=== PATIENT | male | born 1985 | race Caucasian/White ===

== ENCOUNTER 2018-09-10 06:48 | Day surgery (SDC) | payer BC, MEDICAID ==
[2018-09-10] MEDS ORDERED: Acetaminophen TAB* 325 MG ONE (07:03)
[2018-09-10] MEDS ORDERED: Clindamycin 900 MG IVPREMIX(* 900 MG/50 ML SDV IV ONE (07:04)
[2018-09-10] MEDS ORDERED: Propofol* 10 MG/ML 20 ML BTL ONE (07:53)
[2018-09-10] MEDS ORDERED: Lidocaine 2% PF * 5 ML VIAL ONE (07:54)
[2018-09-10] MEDS ORDERED: Remifentanil* 2 MG VIAL ONE (07:54)
[2018-09-10] MEDS ORDERED: Midazolam* 1 MG/ML 2 ML VIAL (2 MG) ONE (07:54)
[2018-09-10] MEDS ORDERED: Phenylephrine 10 MG/ML VIAL* 1 ML VIAL ONE (09:29)
[2018-09-10] MEDS ORDERED: Dexamethasone IV* 4 MG/ML 1 ML (4 MG) ONE (09:35)
[2018-09-10] MEDS ORDERED: Ondansetron INJ* 2 MG/ML VIAL ONE (09:35)
[2018-09-10] MEDS ORDERED: Metoclopramide IV* 5 MG/ML 2 ML VIAL ONE (09:35)
[2018-09-10] MEDS ORDERED: Ketorolac INJ* 30 MG/ML 1 ML VIAL ONE (09:35)
[2018-09-10] MEDS ORDERED: Naloxone* 0.4 MG/ML 1 ML VIAL IV PRN (09:50)
[2018-09-10] MEDS ORDERED: DiMENhydriNATE IV* 50 MG/ML VIAL IV PUSH PRN (09:50)
[2018-09-10] MEDS ORDERED: fentaNYL* 50 MCG/ML 2 ML VIAL (100 MCG VIAL) IV PRN (09:50)
[2018-09-10] MEDS ORDERED: fentaNYL* 50 MCG/ML 2 ML VIAL (100 MCG VIAL) ONE ×2 (10:00→12:02)
[2018-09-10] MEDS ORDERED: Etomidate* 2 MG/ML 10 ML VIAL ONE (11:02)
[2018-09-10] MEDS ORDERED: oxyCODONE TAB* 5 MG TAB ONE ×2 (11:24→15:01)
[2018-09-10] MEDS: oxyCODONE TAB* 5 MG TAB PO PRN ×2 (12:00→15:03)
[2018-09-10 15:06] VITALS: BP 124/85
--- NOTE | 2018-09-10 20:46 | OP ---
DATE OF OPERATION: 09/10/18 - SDS DATE OF : 87 ATTENDING SURGEON: Johnson Rolon MD ANTISQUEAK WORKER: Nargis Neal PA-C PRE-OP DIAGNOSIS: Spastic quadriplegia with left forefoot deformity. POST-OP DIAGNOSIS: Spastic quadriplegia with left forefoot deformity. OPERATIVE PROCEDURE: First MTP joint fusion, fifth DIP resection arthroplasty with flexor and extensor release, left fifth toe. DESCRIPTION OF PROCEDURE: The patient was taken to the operating room where general anesthesia was performed. I made a longitudinal incision over the first MTP joint with the medial lateral flap raised. There was significant osteopenia noted clinically. A guidepin was placed first in the metatarsal, then in the proximal phalanx, and we used a ball and cup reamers from the [employer] set, 18 mm. We then placed the joint in neutral position and tried a proximal to distal lag screw, which did not hold it, cut through the metatarsal head. So we went more distal, lateral, proximal, medial, and found good purchase. We then placed a small T-shaped plate of the 2.4 mm kit to hold the joint in a neutral position dorsally, a combination of locking and nonlocking screws were used. We also made a transverse elliptical incision over the DIP joint of the fifth toe by moving the middle phalanx distal condyle and the distal phalanx proximal condyle. We then pinned this toe longitudinally in a neutral position. We released percutaneously the extensor tendon to the fifth as well as the flexor tendon on the plantar aspect. All these wounds were then irrigated and closed with nylon sutures and a compression dressing applied. [id number] #: [id number] [facility] F[facility]ILITYKinza
== END 2018-09-10 16:24 | disposition home or self-care (01) ==
LOC: OR 06:48
PROVIDERS: ATTEND Orthopaedic Surgery
DX: M21.6X2 Other acquired deformities of left foot (principal); G37.8 Other specified demyelinating diseases of central nervous system; G82.50 Quadriplegia, unspecified; M79.672 Pain in left foot; Z87.442 Personal history of urinary calculi
CPT/HCPCS: 76000; A9270-GY; C1713; C1776; J1100; J1885; J2250; J2405; J2704; J2765; J3010